=== PATIENT | male | born 1995 | race Asian ===

== ENCOUNTER 2020-02-11 23:02 | Emergency (ER) | payer MEDICAID ==
[~2020-02-11] VITALS: Ht 165.1 cm; Wt 70.4 kg
[2020-02-12 01:06] VITALS: BP 125/74
== END 2020-02-12 01:41 | disposition home or self-care (01) ==
LOC: ER 23:03
DX: R07.89 Other chest pain (principal)
CPT/HCPCS: 71046; 99283

== ENCOUNTER 2020-06-24 15:02 | Emergency (ER) | payer MEDICAID ==
[~2020-06-24] VITALS: Ht 165.1 cm; Wt 65.7 kg
[2020-06-24 15:11] VITALS: BP 102/57
[2020-06-24] MEDS ORDERED: TETanus/Pertussis (Acell)/Diphther VAC/PF (Tdap-Adult) 0.5ml syringe IMVAC ONE (15:25)
[2020-06-24] MEDS ORDERED: LIDOcaine 1% W/epiNEPHrine 1:200,000 10ml vial IJ ONE (15:25)
[2020-06-24] MEDS ORDERED: LIDOcaine 1% w/epiNEPHrine 1:200,000 30ml vial IJ ONE (15:30)
[2020-06-24] MEDS ORDERED: CEPH250T PO (16:35)
[2020-07-03] MEDS ORDERED: NO HOME MEDS (12:48)
== END 2020-06-24 17:06 | disposition home or self-care (01) ==
LOC: ER 15:03
DX: S61.012A Laceration without foreign body of left thumb without damage to nail, initial encounter (principal); X58.XXXA Exposure to other specified factors, initial encounter; Y93.9 Activity, unspecified; Y92.89 Other specified places as the place of occurrence of the external cause; Y99.8 Other external cause status
CPT/HCPCS: 12001; 73140; 90471; 90715; 99283

== ENCOUNTER 2020-07-06 10:21 | Day surgery (SDC) | payer MEDICAID ==
[2020-07-06] VITALS (8 sets, daily range): BP systolic 109–132; BP diastolic 77–86
[~2020-07-06] VITALS: Ht 165.1 cm; Wt 67.7 kg
[~2020-07-06 10:21] MED LIST: NO HOME MEDS; ceFAZolin 2gm in dextrose, iso 50 ML IV ONE; famotidine 20mg tablet PO ONE; ringers solution, lacted 1,000 ML IV SCH
[2020-07-06] MEDS ORDERED: BUPIVAcaine/PF 2.5mg/ml (0.25%) 10ml vial ONE (12:43)
[2020-07-06] MEDS ORDERED: LIDOcaine 0.5% (5mg/ml) 50ml vial ONE (13:16)
[2020-07-06] MEDS ORDERED: fentaNYL/PF 50MCG/1 ML 2ML syringe ONE (13:18)
[2020-07-06] MEDS ORDERED: MIDAZolam 5mg/5ml vial ONE (13:25)
--- NOTE | 2020-07-06 13:51 | NUR ---
Received from OR via TIFF , accompanied by Anesthesiologist AMY and report given by Anesthesiolgist. PATIENT WITH 20GPIV IN RIGHT UE RUNNING LR AT 100. DENIES PAIN AT THIS TIME. LEFT WRIST DRESSING JENNA BANDAGE IS ALL CDI AT THIS TIME. THUMB SPICA PRESENT AND THUMB HAS + SENSATION. NO DRAINAGE EVIDENT AT THIS TIME. VSS. Addendum: 07/06/20 at 1407 by Lucas Rowland RN, RN Amended: Links added.
--- NOTE | 2020-07-06 15:01 | NUR ---
PATIENT HAS VERBALIZED UNDERSTANDING, OPPORTUNITY TO ASK QUESTIONS GIVEN AND PATIENT COMFORTABLE WITH DC. IV TAKEN OUT WITHOUT COMPLICATION. PATIENT HAS MET ALL DC CRITERIA FOR DC HOME. I HAVE REVIEWED D/C INSTRUCTIONS WITH OUT VIA WHEELCHAIR WHERE PATIENT WAS TAKEN HOME WITH ALL BELONGINGS. FAMILY GAVE PATIENT TRANSPORT HOME. LEFT WRIST DRESSING IS CDI AND PATIENT HAS ICE BAG. Addendum: 07/06/20 at 1507 by Lucas Rowland RN, RN Amended: Links added.
== END 2020-07-06 15:01 | disposition home or self-care (01) ==
LOC: PAS 10:21
PROVIDERS: ATTEND Orthopaedic Surgery Hand Surgery
DX: S66.222A Laceration of extensor muscle, fascia and tendon of left thumb at wrist and hand level, initial encounter (principal); F12.90 Cannabis use, unspecified, uncomplicated; Z79.899 Other long term (current) drug therapy; Z87.891 Personal history of nicotine dependence; Z20.828 Contact with and (suspected) exposure to other viral communicable diseases; W45.8XXA Other foreign body or object entering through skin, initial encounter; Y93.89 Activity, other specified; Y92.89 Other specified places as the place of occurrence of the external cause; Y99.8 Other external cause status
CPT/HCPCS: 26418; 36415; 82948; 87635; A6222; J2001; J2250; J3010; J3490; A4215; A4615; J7120

== ENCOUNTER 2021-05-14 21:25 | Emergency (ER) | payer MEDICAID ==
[~2021-05-14] VITALS: Ht 165.1 cm; Wt 68.5 kg
[~2021-05-14 21:25] MED LIST changes: -ceFAZolin 2gm in dextrose, iso 50 ML IV ONE; -famotidine 20mg tablet PO ONE; -ringers solution, lacted 1,000 ML IV SCH
[2021-05-15] MEDS ORDERED: CLIN150C8 PO (00:48)
[2021-05-15 01:01] VITALS: BP 121/88
== END 2021-05-15 01:03 | disposition home or self-care (01) ==
LOC: ER 21:26
DX: S90.851A Superficial foreign body, right foot, initial encounter (principal); M79.671 Pain in right foot; F12.90 Cannabis use, unspecified, uncomplicated; W22.8XXA Striking against or struck by other objects, initial encounter; Y93.01 Activity, walking, marching and hiking; Y92.89 Other specified places as the place of occurrence of the external cause; Y99.8 Other external cause status
CPT/HCPCS: 73630; 99283